=== PATIENT | female | born 1980 | race Two or more races ===

== ENCOUNTER 2024-06-26 14:36 | Inpatient (IN) | payer OTHER ==
[~2024-06-26] VITALS: Ht 162.6 cm; Wt 59.9 kg
--- NOTE | 2024-06-26 14:43 | NUR ---
SE RECIBE PTE ALERTA Y ORIENTADA X3 10 SEMANAS DE GESTACION, DR.ROBERTO ROMERO CON ABORTO INCOMPLETO ENVIADA PARA SER ADMITIDA PARA OR.
[2024-06-26] MEDS ORDERED: RINGERS LACTATED IV STA (15:12)
[2024-06-26] MEDS ORDERED: CEFAZOLIN SODIUM 1,000 MG VIAL IV STA (15:13)
[2024-06-26 16:01] LABS: HEMATOCRIT 40.2 % (36.0-45.00); HEMOGLOBIN 13.5 g/dL (12.0-15.00); MEAN CELL VOLUME 87.1 fL (80.00-100.00); MEAN CORPUSCULAR HEMOGLOBIN 29.2 pg (27.00-32.0); MEAN CORPUSCULAR HGB CONC 33.5 g/dl (32.0-36.0); PLATELET COUNT 351 K/uL (150-450); RED BLOOD COUNT 4.61 M/uL (4.00-6.00); RED CELL DISTRIBUTION WIDTH 14.4 % (11.5-14.5)
[2024-06-26 16:19] LABS: URINE APPEARANCE Clear; URINE BILIRRUBIN Negative (NEGATIVE); URINE BLOOD Large; URINE COLOR Yellow; URINE GLUCOSE Negative (NEGATIVE); URINE LEUKOCYTE Negative; URINE NITRATE Negative; URINE PROTEIN Negative (NEGATIVE); URINE UROBILINOGEN 0.2 E.U./dl
[2024-06-26 16:22] LABS: URINE EPITHELIAL CELLS 26.8 uL (0.0-38.8); URINE WBC 9.5 uL (0.0-23.2)
[2024-06-26 16:28] LABS: ALBUMIN 4.5 gm/dL (3.4-5.0); BILIRUBIN TOTAL 0.58 mg/dL (0.3-1.2); CALCIUM 9.4 mg/dL (8.5-10.1); CREATININE SERUM 0.65 mg/dL (0.55-1.02); GFR 98.13; POTASSIUM 3.77 mEq/L (3.5-5.1); TOTAL PROTEIN 7.5 gm/dL (6.4-8.2)
[2024-06-26 16:29] VITALS: BP 95/61; O2SAT 100
[2024-06-26 16:29] LABS: URINE KETONE 40 (NEGATIVE)
[2024-06-26 16:46] LABS: INR 0.96; PARTIAL THROMBOPLASTIN TIME 24.2 SECONDS (22.0-34.0); PROTHROMBIN TIME 10.5 SECONDS (9.0-11.5)
[2024-06-26] MEDS ORDERED: POVIDONE-IODINE 118 ML BOTT TOP ONE (21:15)
[2024-06-26] MEDS ORDERED: MORGIDOX100 MG PO (21:28)
[2024-06-26] MEDS ORDERED: NAPROXEN500 MG PO (21:28)
[2024-06-26] MEDS ORDERED: METHYLERGONOVINE MALEATE 0.2 MG/ML AMPUL IV ONE (21:30)
[2024-06-26] MEDS ORDERED: NAPROXEN500 MG (21:39)
[2024-06-26] MEDS ORDERED: CEFAZOLIN SODIUM 1,000 MG VIAL IV ONE (22:00)
[2024-06-26] MEDS ORDERED: MORPHINE SULFATE 4 MG/ML VIAL IV ONE (22:30)
[2024-06-27 05:24] VITALS: BP 97/65; O2SAT 100
== END 2024-06-27 03:40 | disposition home or self-care (01) | DRG 770 ==
LOC: ER 14:37 → SEC-K 16:20 → O/R 18:16
PROVIDERS: ADMIT Obstetrics & Gynecology; ATTEND Obstetrics & Gynecology
PROC: 10D17ZZ Extraction of Products of Conception, Retained, Via Natural or Artificial Opening (ICD-10-PCS; principal; 2024-06-26 21:30)
DX: O03.4 Incomplete spontaneous abortion without complication (principal); Z20.822 Contact with and (suspected) exposure to COVID-19